=== PATIENT | male | born 1985 | race Caucasian/White ===

== ENCOUNTER 2017-10-07 00:09 | Emergency (ER) | payer BC ==
[~2017-10-07] VITALS: Ht 170.2 cm; Wt 68.0 kg
[2017-10-07 00:14] VITALS: BP 122/83
--- NOTE | 2017-10-07 00:33 | NUR ---
Dr Fajardo at bedside to eval patient.
== END 2017-10-07 01:19 | disposition home or self-care (01) ==
LOC: ER 00:11
DX: R06.02 Shortness of breath (principal); Z88.1 Allergy status to other antibiotic agents
CPT/HCPCS: A4606; Z7502; Z7610

== ENCOUNTER 2023-03-24 18:29 | Emergency (ER) | payer BC, OTHER ==
[~2023-03-24] VITALS: Ht 170.2 cm; Wt 70.3 kg
[2023-03-24 18:53] VITALS: BP 124/95
--- NOTE | 2023-03-24 19:55 | NUR ---
C/O ABDOMINAL "UPPER AREA" X 3 HOURS S/P TAKING FISH OIL SUPPLIMENT. PT DENIES NAUSEA AND VOMITING OR DIARRHEA. PT IS AAOX4. ABLE TO MAKE NEEDS KNOWN. PLACED COMFORTABLY IN BED.
[2023-03-24] MEDS ORDERED: OMEP20CA15 PO (20:39)
--- NOTE | 2023-03-24 21:16 | NUR ---
Patient discharged to home in stable condition. Written and verbal after care instructions given. Patient verbalizes understanding of instruction.
== END 2023-03-24 21:17 | disposition home or self-care (01) ==
LOC: ER 18:35
DX: R10.13 Epigastric pain (principal); Z60.2 Problems related to living alone; Z88.1 Allergy status to other antibiotic agents